=== PATIENT | female | born 1955 | race Caucasian/White ===

== ENCOUNTER 2023-06-27 12:27 | Emergency (ER) | payer MEDICARE, SELFPAY ==
[2023-06-27 12:30] VITALS: BP 145/82; PULSE 96; RESP 20; TEMP 36.3; O2SAT 96
--- NOTE | 2023-06-27 12:30 | DI.RAD_ITS ---
Exam(s) XR SHOULDER RT COMPLETE 2+V EXAM: XR SHOULDER RT COMPLETE 2+V CLINICAL HISTORY: fall, concern for shoulder dislocation. TECHNIQUE: 2D digital imaging was performed. Five views. COMPARISON: No exams were available for comparison FINDINGS: BONES: No acute fracture is present. No bony destructive lesion is seen. JOINTS: Dislocation of the humeral head anteriorly with respect to the glenoid. AC joint shows degen erative changes but is not widened. SOFT TISSUE: Normal. IMPRESSION: Anterior glenohumeral joint dislocation. DATA REPOSITORY: RADIATION DOSE DELIVERED:
--- NOTE | 2023-06-27 12:46 | W.ED.GENAD ---
Discharge Plan Disposition Patient Disposition: Home Condition: Improving Discharge Details Chief Complaint: Orthopedic Clinical Impression: Anterior shoulder dislocation Primary Care Provider: [facility] Provider: Jarod Nagy Home Meds and New Rx's Prescriptions: No Action citalopram [Celexa] 20 mg tablet 20 mg PO DAILY bupropion HCl 100 mg tablet 100 mg PO DAILY Discharge Instructions Instructions: Shoulder Dislocation (ED) HPI General Date/Time Provider Initiated Documentation: 06/27/23 12:31. HPI Narrative: 67-year-old female was skiing fell onto her side felt a pop at her right shoulder pain and deformity. Given 30 mcg of fentanyl with as milligrams of acetaminophen as well as nitrous and route. Patient placed in sling. Denies head chest abdominal injury or other limb injuries. Related Data Home Medications Medication Instructions Recorded Confirmed bupropion HCl 100 mg tablet 100 mg PO DAILY 06/27/23 06/27/23 citalopram 20 mg tablet (Celexa) 20 mg PO DAILY 06/27/23 06/27/23 Allergies Allergy/AdvReac Type Severity Reaction Status Date / Time No Known Allergies Allergy Unverified 06/27/23 12:35 General Stated Complaint: Orthopedic SHARONA: 4 Review of Systems Narrative: Review of Systems Constitutional: negative Eyes: negative ENT: negative Cardiovascular: negative Respiratory: negative Gastrointestinal: negative : negative Musculoskeletal: Shoulder pain Skin: negative Neurologic: negative Psych: negative Exam Narrative Exam Narrative: Physical Examination General: alert, awake, cooperative, resting comfortably, no acute distress HEENT: normocephalic, atraumatic; PERRL, EOM intact, conjunctiva normal; no nasal discharge; moist mucous membranes, oral and pharyngeal mucosa normal, tolerating secretions Neck: supple, trachea midline; full ROM Chest: normal to inspection Respiratory: normal respiratory effort, speaking in full sentences, clear to auscultation, no wheezing, rales or rhonchi Cardiac: regular rate, regular rhythm, S1S2 intact, no murmurs rubs or gallops GI: abdomen soft, non-tender, non-distended; no palpable mass or hepatosplenomegaly Back: No midline spinal tenderness step-off crepitus or deformity Skin: no lesions, rashes or trauma appreciated Neuro: AAOx3, normal speech Extremities: Right arm held adducted to side, empty glenoid fossa on palpation, warm well-perfused extremity soft compartment, radial pulse intact median radial and ulnar nerve distribution intact; pelvis stable moving bilateral lower extremities Psych: Appropriate mood and affect Course Vital Signs Vital signs: Vital Signs Temperature 36.3 C L 06/27/23 12:30 Pulse 96 H 06/27/23 12:30 Respiratory Rate 20 06/27/23 12:30 Blood Pressure 145/82 H 06/27/23 12:30 Pulse Oximetry 96 06/27/23 12:30 Temperature 36.3 C L 06/27/23 12:30 Temperature Source Temporal Artery Scan 06/27/23 12:30 Pulse 96 H 06/27/23 12:30 Respiratory Rate 20 06/27/23 12:30 Blood Pressure 145/82 H 06/27/23 12:30 Pulse Oximetry 96 06/27/23 12:30 Procedures Orthopedic Joint Reduction Joint #1: Time Out Performed: Yes Side: right Joint Reduction Location: shoulder Analgesia: procedural sedation Shoulder Technique Used (if applicable): traction/counter-traction and external rotation Post-reduction neuro exam: intact Post-reduction vascular: intact Post Reduction X-Ray Obtained: Yes Procedural Sedation Indication: fracture/dislocation reduction ASA Class: I Time of Last PO Intake: 08:00 Preparation: shelter monitor applied, pulse oximeter, capnometry used and suction/airway equipment at bedside IV Propofol dose (mg): 40 Patient Tolerated Procedure: well Complications: none Medical Decision Making 67-year-old female presents after fall while skiing, pain and deformity to right shoulder, empty glenoid fossa high clinical suspicion for shoulder dislocation. Muscles consider proximal humeral fracture. Neurovascular exam of limb intact. Neurologically intact. Afebrile nontoxic. Patient very uncomfortable have added 50 mcg dose of fentanyl, patient received 1000 mg acetaminophen, as well as 200 mcg fentanyl in the field as well as nitrous in the field. Calling for bedside x-ray, will attempt bedside reduction if simple dislocation without fracture. No evidence of cranial thoracoabdominal trauma. 13: 14 bedside portable x-ray consistent with anterior shoulder dislocation no evidence of fracture, given patient discomfort procedural sedation propofol 0.5 mg/kg was administered, respiratory bedside patient on capnography airway equipment at bedside, downward traction external rotation applied with successful reduction, neurovascular exam intact. Patient coming back to baseline not requiring any supplemental oxygen or ventilation. Hemodynamically stable. Will obtain post procedure x-ray. Home in [facility] 14: 17 patient is returned to baseline. No distress. Postreduction x-ray showing successful reduction. Patient will follow-up with her orthopedist back in [place] when she returns home Quality:SDOH Health Related Social Needs: No Data to Display PFSH All Active Problems (Updated 06/27/23 @ 14:17 by Jarod Nagy MD) Anterior shoulder dislocation (Acute) Social History Smoking risk assessment performed?: No
--- NOTE | 2023-06-27 13:00 | DI.RAD_ITS ---
Exam(s) XR SHOULDER RT COMPLETE 2+V EXAM: XR SHOULDER RT COMPLETE 2+V CLINICAL HISTORY: post reduction. TECHNIQUE: 2D digital imaging was performed. Five views. COMPARISON: CR,XR XR SHOULDER RT COMPLETE 2+V from 06/27/2023 FINDINGS: BONES: No acute fracture is present. No bony destructive lesion is seen. JOINTS: The previously noted shoulder dislocation has been reduced. Glenohumeral alignment is now no rmal. Degenerative changes again noted at the AC joint. SOFT TISSUE: Normal. IMPRESSION: Reduction of the previously noted shoulder dislocation. No fracture is visible. DATA REPOSITORY: RADIATION DOSE DELIVERED:
[2023-06-27] MEDS: fentaNYL 100 MCG/2 ML VIAL 50 MCG IVP (13:15)
[2023-06-27] MEDS: Propofol 200 MG/20 ML VIAL 80 MG IVP (13:16)
--- NOTE | 2023-06-27 13:16 | DI.VRAD_ITS ---
PROCEDURE INFORMATION: Exam: XR Right Shoulder Exam date and time: 06/27/2023 12:54 PM Age: 67 years old Clinical indication: Injury or trauma; Fall; Blunt trauma (contusions or hematomas); Shoulder; Right TECHNIQUE: Imaging protocol: Radiologic exam of the right shoulder. Views: 2 or more views. COMPARISON: No relevant prior studies available. FINDINGS: Bones/joints: Anterior dislocation of the right shoulder. Degenerative changes of the right acromioclavicular joint. Degenerative changes of the visualized thoracic spine. Lungs: Low lung volumes. Soft tissues: Unremarkable. IMPRESSION: Anterior dislocation of the right shoulder. Dictated and Authenticated by: Rachell Travis MD. Ordering:MADI Olivera MD
--- NOTE | 2023-06-27 13:16 | RESPIRATORY ---
Paged to ED for conscious sedation. Ambu bag hooked to flow meter and turned on, nasal cannula with capnography placed on patient, and nasal trumpet at bedside. Patient remained on RA during procedure with SpO2 96%, EtCo2 39, RR 18 and HR 65.
[2023-06-27 13:22] VITALS: BP 119/84; PULSE 57; RESP 20; O2SAT 98
--- NOTE | 2023-06-27 13:57 | DI.VRAD_ITS ---
PROCEDURE INFORMATION: Exam: XR Right Shoulder Exam date and time: 06/27/2023 1:32 PM Age: 67 years old Clinical indication: Condition or disease; Other: Post reduction TECHNIQUE: Imaging protocol: Radiologic exam of the right shoulder. Views: 2 or more views. COMPARISON: CR XR SHOULDER RT COMPLETE 2+V 05/30/2023 12:54 FINDINGS: Tubes, catheters and devices: EKG wires overlie the chest. Bones/joints: Degenerative changes of the acromioclavicular joint. Reduction of the previous dislocated shoulder. No evidence for fracture of the shoulder. The visualized ribs are intact. Soft tissues: Unremarkable. IMPRESSION: Postreduction views of the right shoulder intact. Dictated and Authenticated by: Rachell Travis MD. Ordering:MADI Olivera MD
[2023-06-27 14:35] VITALS: BP 118/68; PULSE 68; RESP 18; TEMP 37; O2SAT 98
== END 2023-06-27 14:35 | disposition home or self-care (01) ==
PROVIDERS: Emergency Provider Emergency Medicine
DX: S43.084A Other dislocation of right shoulder joint, initial encounter (principal); W00.0XXA Fall on same level due to ice and snow, initial encounter; Y93.23 Activity, snow (alpine) (downhill) skiing, snowboarding, sledding, tobogganing and snow tubing; Y92.838 Other recreation area as the place of occurrence of the external cause
CPT/HCPCS: 23650; 99283; 73030; J2704; J3010